=== PATIENT | female | born 1965 | race American Indian/Alaskan Native ===

== ENCOUNTER 2016-10-19 01:46 | Emergency (ER) | payer SELFPAY ==
[2016-10-19] MEDS ORDERED: TRIPLE ANTIBIOTIC TP ONE (07:26)
[2016-10-19] MEDS ORDERED: MOTRIN PO ONE (07:26)
[2016-10-19] MEDS ORDERED: BOOSTRIX IM ONE (07:26)
--- NOTE | 2016-10-19 07:26 | Emergency Department Report ---
HPI - General Chief Complaint: Fall Time Seen by Provider: 10/19/16 07:18 - HPI HPI: Patient here reports that she slipped and fell last night. She says she hit her face on concrete. Denies any headache or loss of consciousness. Denies any dizziness, nausea or vomiting. She is also complaining that she has abrasion to her face and her knees. Pain is 10 out of 10 all over. She received some Tylenol in triage area but she says she still having pain. Denies any change in vision. Nose any neck pain or face pain hand her vertebrae. No [id number] medication taken prior to coming to the emergency room. Patient had report that she was having headache in triage area but she says she is not having any headache at present. ED Past Medical Hx - Past Medical History Previous Medical History?: No - Surgical History Past Surgical History?: No - Family History Family history: no significant - Social History Smoking Status: Never Smoker Substance Use Type: None - Medications Home Medications: Home Medications Medication Instructions Recorded Confirmed Last Taken Type Cephalexin [Keflex] 500 mg PO Q8HR #21 cap 10/19/16 Unknown Rx Ibuprofen [Motrin] 600 mg PO Q8H PRN #15 tablet 10/19/16 Unknown Rx ED Review of Systems ROS: Stated complaint: FOREHEAD LAC/KNEE INJURY/FALL Other details as noted in HPI Comment: All other systems reviewed and negative Constitutional: denies: chills, fever Respiratory: no symptoms reported Cardiovascular: denies: chest pain, palpitations, edema, syncope Gastrointestinal: denies: abdominal pain, nausea, vomiting Musculoskeletal: arthralgia. denies: back pain, joint swelling, myalgia Skin: other (abrasions to the knee and left facial area) Neurological: denies: headache, weakness, numbness, paresthesias, confusion Physical Exam - Physical Exam Vital Signs: Vital Signs 10/19/16 10/19/16 01:55 06:48 Temperature 97.9 F Pulse Rate 72 72 Respiratory 20 14 Rate Blood Pressure 147/87 149/95 O2 Sat by Pulse 100 100 Oximetry General: This is a 51-year-old female well-nourished well-developed in no acute distress. Physical Exam: Head: Normocephalic atraumatic, no contusion, or laceration. Patient has abrasion to forehead. Mouth: Moist, no pharyngeal exudate or erythema. Uvula is midline and oral airway is patent. No facial swelling. No peritonsillar abscesses. Neck: Supple, no C-spine tenderness, no tracheal deviation. Nontender to palpate. no adenopathy EAbdomen: Soft, nontender to palpate in all quadrants, normal bowel sounds in all quadrant and negative CVA tenderness bilaterally. Back: No vertebral or paraspinal tenderness. No saddle anesthesia. Patient able to ambulate without any difficulties. Negative SLR bilaterally. Neurological: GCS of 15, alert and oriented 3. Speech is clear and fluid. Normal gait. No motor or sensory deficit. Normal reflexes. No facial drooping. No pronator drift and negative Romberg. Eyes: Bilateral pupils equal and reactive to light, bilateral EOM intact. Bilateral sclera and conjunctiva without injection. Normal accommodation. No nystagmus MSK: Patient with full range of motion to all extremity, +5/5 strength in all extremity. No joint deformity or erythema. No crepitus or effusion. Lungs: Cle[place]o auscultate bilaterally no rhonchi wheezes or rales. Normal work of breathing extremity; No CCE. +2 pulses. No neurovascular compromise Cardiovascular: S1-S2, regular rate rhythm. No murmurs. Skin: Abrasion noted to bilateral knees and left forehead Psych: Normal mood and behavior ED Course Vital Signs 10/19/16 10/19/16 01:55 06:48 Temperature 97.9 F Pulse Rate 72 72 Respiratory 20 14 Rate Blood Pressure 147/87 149/95 O2 Sat by Pulse 100 100 Oximetry - Reevaluation(s) Reevaluation #1: 10/19/16 08:23 Patient received Motrin 800 mg in emergency room for pain. She received 0.5 males injection to update tetanus. Rations to knee and forehead cleansed with normal saline and Neosporin ointment placed the site. ED Medical Decision Making - Medical Decision Making ED course: Patient is neurologically intact and no C-spine or vertebral tenderness. She is able to ambulate without any difficulties. She status post fall with complain of pain to the knees and facial area with abrasions to areas.Patient received Motrin 800 mg in emergency room for pain. She received 0.5 males injection to update tetanus. Patient to knee and forehead cleansed with normal saline and Neosporin ointment placed the site. I explained discharge diagnosis and treatment plan with patient and family and they voiced understanding. Discharged home with prescription for Motrin and Keflex and to keep abrasions clean and dry and place Neosporin ointment to sides. Critical care attestation.: If time is entered above; I have spent that time in minutes in the direct care of this critically ill patient, excluding procedure time. ED Disposition Clinical Impression: Fall on same level from slipping as cause of accidental injury, Abrasion, multiple sites, Arthralgia of both knees Disposition: DC- TO HOME OR SELFCARE Is pt being admited?: No Does the pt Need Aspirin: No Condition: Stable Instructions: Arthralgia (ED), Abrasion (ED), Fall Prevention (ED) Additional Instructions: Please keep affected area clean and dry. Take antibiotic as prescribed Follow up with primary care physician in 2-3 days. Prescriptions: Cephalexin [Keflex] 500 mg PO Q8HR #21 cap Ibuprofen [Motrin] 600 mg PO Q8H PRN #15 tablet PRN Reason: Pain Referrals: PRIMARY CARE, [Primary Care Provider] - 2-3 Days Forms: Accompanied Note, Work/School Release Form(ED)
[2016-10-19 08:53] VITALS: BP 139/88
== END 2016-10-19 08:52 | disposition home or self-care (01) ==
LOC: ED 01:46
DX: S80.212A Abrasion, left knee, initial encounter (principal); S80.211A Abrasion, right knee, initial encounter; W01.0XXA Fall on same level from slipping, tripping and stumbling without subsequent striking against object, initial encounter; Y93.9 Activity, unspecified; Y92.9 Unspecified place or not applicable; Y99.9 Unspecified external cause status
CPT/HCPCS: 90471; 90715; 99282; A6250